=== PATIENT | female | born 1995 ===

== ENCOUNTER 2024-04-17 19:56 | Outpatient (REF) | payer OTHER, SELFPAY ==
[2024-04-23 12:12] LABS: Age Gdln ACOG Testing Note (.); HPV Aptima Negative (Negative); IGP, Aptima HPV, rfx 16/18,45 Note (.)
== END 2024-04-17 19:57 | disposition home or self-care (01) ==
LOC: LAB 19:56
PROVIDERS: PCP Physician Assistant; Visit Provider Physician Assistant
DX: Z01.419 Encounter for gynecological examination (general) (routine) without abnormal findings (principal)
CPT/HCPCS: 87624; 88175